=== PATIENT | male | born 1980 | race Caucasian/White ===

== ENCOUNTER 2024-02-16 11:21 | Day surgery (SDC) | payer OTHER ==
[2024-02-16] MEDS ORDERED: Sodium Chloride 0.9(Preservative Free) 10 ML IJ ONE (11:22)
[2024-02-16] MEDS ORDERED: Depo-Medrol 40 MG/ML IM ONE (11:22)
[2024-02-16] MEDS ORDERED: DIPRIVAN 200 MG/20 ML IV ONE (13:01)
[2024-02-16] MEDS ORDERED: MORPHINE SULFATE 2 MG INJ ONE (13:25)
--- NOTE | 2024-02-16 14:45 | XRAY ---
Indication: Left L4-S1 transforaminal CM. Intraoperative fluoroscopy provided for 30 seconds. 4 digital spot image submitted for interpretation demonstrates posterior needle tips projecting over the expected left L4 and L5 nerve roots. Small amount of contrast injected for needle tip placement. Correlate with intraoperative findings/report.
[2024-02-16] MEDS ORDERED: Lactated Ringers 1,000 ML IV ONE (15:06)
--- NOTE | 2024-02-16 16:44 | XRAY ---
30 seconds of fluoroscopy was used in surgery for a left L4-S1 transforaminal CM.
== END 2024-02-16 13:51 | disposition home or self-care (01) ==
LOC: SDC-PAIN 11:21
PROVIDERS: ATTEND Psychiatry & Neurology Pain Medicine
DX: M54.16 Radiculopathy, lumbar region (principal)
CPT/HCPCS: 64483; 64484; 72100; 77003; J1010; J2270; J2704; Q9966

== ENCOUNTER 2024-09-20 10:23 | Day surgery (SDC) | payer OTHER ==
[2024-09-20] MEDS ORDERED: LIDOCAINE HCL 2% 100 MG/5 ML IJ ONE (10:24)
[2024-09-20] MEDS ORDERED: Versed 2 MG/2 ML Injection ONE (10:55)
[2024-09-20] MEDS ORDERED: propofoL IV ONE (11:32)
--- NOTE | 2024-09-20 12:13 | XRAY ---
Indication: Bilateral L1-L3 MBB. Intraoperative fluoroscopy provided for 19 seconds. Single digital spot image submitted for interpretation demonstrates posterior needle tips projecting over the expected left and right L1-L3 nerve roots. Correlate with intraoperative findings/report.
--- NOTE | 2024-09-20 12:55 | XRAY ---
19 seconds of fluoroscopy was used in surgery for a bilateral L1-L3 MBB.
== END 2024-09-20 12:10 | disposition home or self-care (01) ==
LOC: SDC-PAIN 10:23
PROVIDERS: ATTEND Psychiatry & Neurology Pain Medicine
DX: M47.816 Spondylosis without myelopathy or radiculopathy, lumbar region (principal)
CPT/HCPCS: 64493; 64494; 72020; 77002; J2250; J2704

== ENCOUNTER 2024-11-15 11:39 | Day surgery (SDC) | payer OTHER ==
[2024-11-15] MEDS ORDERED: BUPIVACAINE 0.5% VIAL IJ ONE (11:40)
[2024-11-15] MEDS ORDERED: Depo-Medrol 40 MG/ML IM ONE (11:40)
[2024-11-15] MEDS ORDERED: propofoL IV ONE (13:35)
--- NOTE | 2024-11-15 14:41 | XRAY ---
Indication: Bilateral L1-L3 MBB. Intraoperative fluoroscopy provided for 17 seconds. Single digital spot image submitted for interpretation demonstrates posterior needle tips project over expected left and right L1-L3 nerve roots. Correlate with intraoperative findings/report.
--- NOTE | 2024-11-15 14:44 | XRAY ---
17 seconds of fluoroscopy was used in surgery for a bilateral L1-L3 MBB.
== END 2024-11-15 13:38 | disposition home or self-care (01) ==
LOC: SDC-PAIN 11:39
PROVIDERS: ATTEND Psychiatry & Neurology Pain Medicine
DX: M47.816 Spondylosis without myelopathy or radiculopathy, lumbar region (principal)
CPT/HCPCS: 64493; 64494; 72020; 77002; J2704

== ENCOUNTER 2024-12-20 10:49 | Day surgery (SDC) | payer OTHER ==
[2024-12-20] MEDS ORDERED: LIDOCAINE HCL 1% AMPUL 5 ML IJ ONE (10:50)
[2024-12-20] MEDS ORDERED: Depo-Medrol 40 MG/ML IM ONE (10:50)
[2024-12-20] MEDS ORDERED: BUPIVACAINE 0.5% VIAL IJ ONE (10:50)
[2024-12-20] MEDS ORDERED: Lactated Ringers 500 ML IV ONE (11:46)
[2024-12-20] MEDS ORDERED: propofoL IV ONE (13:11)
--- NOTE | 2024-12-20 16:31 | XRAY ---
Indication: Right L1-L3 RFA. Intraoperative fluoroscopy provided for 27 seconds. 4 digital spot image submitted for interpretation demonstrates posterior needle tips projecting over expected right L1-L3 nerve roots. Correlate with intraoperative findings/report.
--- NOTE | 2024-12-20 16:46 | XRAY ---
27 seconds of fluoroscopy was used in surgery for a right L1-L3 RFA.
== END 2024-12-20 13:50 | disposition home or self-care (01) ==
LOC: SDC-PAIN 10:49
PROVIDERS: ATTEND Psychiatry & Neurology Pain Medicine
DX: M47.817 Spondylosis without myelopathy or radiculopathy, lumbosacral region (principal)
CPT/HCPCS: 64635; 64636; 72100; J2704

== ENCOUNTER 2024-12-21 11:10 | Day surgery (SDC) | payer OTHER ==
[2024-12-21] MEDS ORDERED: BUPIVACAINE 0.5% VIAL IJ ONE (11:11)
[2024-12-21] MEDS ORDERED: LIDOCAINE HCL 1% AMPUL 5 ML IJ ONE (11:11)
[2024-12-21] MEDS ORDERED: Depo-Medrol 40 MG/ML IM ONE (11:11)
[2024-12-21] MEDS ORDERED: Lactated Ringers 500 ML IV ONE (11:14)
[2024-12-21] MEDS ORDERED: propofoL IV ONE ×2 (12:31→14:01)
--- NOTE | 2024-12-21 19:25 | XRAY ---
22 seconds of fluoroscopy was used in surgery for a left L1-L3 RFA.
--- NOTE | 2024-12-21 19:37 | XRAY ---
Indication: Left L1-L3 RFA. Intraoperative fluoroscopy provided for 22 seconds. 2 digital spot image submitted for interpretation demonstrates posterior needle tips projecting over expected left L1-L3 nerve roots. Correlate with intraoperative findings/report.
== END 2024-12-21 13:10 | disposition home or self-care (01) ==
LOC: SDC-PAIN 11:10
PROVIDERS: ATTEND Psychiatry & Neurology Pain Medicine
DX: M47.817 Spondylosis without myelopathy or radiculopathy, lumbosacral region (principal)
CPT/HCPCS: 64635; 64636; 72100; J2704

== ENCOUNTER 2025-07-25 10:53 | Day surgery (SDC) | payer OTHER ==
[2025-07-25] MEDS ORDERED: LIDOCAINE HCL 1% 50 MG/5 ML VL IJ ONE (10:54)
[2025-07-25] MEDS ORDERED: BUPIVACAINE 0.5% VIAL IJ ONE (10:54)
[2025-07-25] MEDS ORDERED: methylPREDNISolone acetate IM ONE (10:54)
[2025-07-25] MEDS ORDERED: propofoL IV ONE (13:26)
[2025-07-25] MEDS ORDERED: Xylocaine-Mpf 2% 5 Ml Vial ONE (13:26)
[2025-07-25] MEDS ORDERED: Lactated Ringers 1,000 ML IV ONE (13:45)
--- NOTE | 2025-07-25 15:12 | XRAY ---
Indication: Right L1-L3 RFA. Intraoperative fluoroscopy provided for 26 seconds. 4 digital spot image submitted for interpretation demonstrates posterior needle tips projecting over expected right L1-L3 nerve roots. Correlate with intraoperative findings/report.
--- NOTE | 2025-07-25 15:16 | XRAY ---
26 seconds of fluoroscopy was used in surgery for a right L1-L3 RFA.
== END 2025-07-25 14:03 | disposition home or self-care (01) ==
LOC: SDC-PAIN 10:53
PROVIDERS: ATTEND Psychiatry & Neurology Pain Medicine
DX: M47.817 Spondylosis without myelopathy or radiculopathy, lumbosacral region (principal)